=== PATIENT | female | born 1960 | race African-American/Black ===

== ENCOUNTER 2017-09-11 10:31 | Emergency (ER) | payer MEDICAID ==
[~2017-09-11] VITALS: Ht 162.6 cm; Wt 55.8 kg
[~2017-09-11 10:31] MED LIST: LISI-167 PO
[2017-09-11 11:05] VITALS: BP 180/105
== END 2017-09-11 11:24 | disposition home or self-care (01) ==
LOC: ED 11:10
DX: Z76.0 Encounter for issue of repeat prescription (principal); I10 Essential (primary) hypertension
CPT/HCPCS: 99283

== ENCOUNTER 2017-11-19 01:23 | Emergency (ER) | payer MEDICAID ==
[~2017-11-19] VITALS: Ht 162.6 cm; Wt 58.8 kg
[2017-11-19 01:33] VITALS: BP 150/87
== END 2017-11-19 02:59 | disposition home or self-care (01) ==
LOC: ED 02:40
DX: B96.89 Other specified bacterial agents as the cause of diseases classified elsewhere (principal); J20.8 Acute bronchitis due to other specified organisms; I10 Essential (primary) hypertension
CPT/HCPCS: 71046; 99284

== ENCOUNTER 2018-01-20 08:31 | Emergency (ER) | payer MEDICAID ==
[~2018-01-20] VITALS: Ht 162.6 cm; Wt 61.0 kg
[2018-01-20 08:36] VITALS: BP 160/88
== END 2018-01-20 09:27 | disposition home or self-care (01) ==
LOC: ED 09:15
DX: J00 Acute nasopharyngitis [common cold] (principal); Z76.0 Encounter for issue of repeat prescription; I10 Essential (primary) hypertension
CPT/HCPCS: 99283

== ENCOUNTER 2018-05-06 09:58 | Emergency (ER) | payer MEDICAID ==
[~2018-05-06] VITALS: Ht 162.6 cm; Wt 59.0 kg
[2018-05-06 10:00] VITALS: BP 142/80
== END 2018-05-06 10:54 | disposition home or self-care (01) ==
LOC: ED 10:48
DX: S39.012A Strain of muscle, fascia and tendon of lower back, initial encounter (principal); I10 Essential (primary) hypertension; F17.200 Nicotine dependence, unspecified, uncomplicated; W22.8XXA Striking against or struck by other objects, initial encounter; Y93.89 Activity, other specified; Y92.89 Other specified places as the place of occurrence of the external cause; Y99.8 Other external cause status; Z76.0 Encounter for issue of repeat prescription
CPT/HCPCS: 99283

== ENCOUNTER 2018-06-10 12:44 | Emergency (ER) | payer MEDICAID ==
[~2018-06-10] VITALS: Ht 162.6 cm; Wt 61.6 kg
[2018-06-10 12:53] VITALS: BP 169/95
[2018-06-10] MEDS ORDERED: DEXAMETHASONE 4 MG TABLET ONE (13:20)
[2018-06-10] MEDS ORDERED: DEXAMETHASONE 4 MG TABLET PO ONE (13:30)
== END 2018-06-10 13:36 | disposition home or self-care (01) ==
LOC: ED 13:23
DX: L24.5 Irritant contact dermatitis due to other chemical products (principal); I10 Essential (primary) hypertension; F17.200 Nicotine dependence, unspecified, uncomplicated
CPT/HCPCS: 99283; Q0177

== ENCOUNTER 2018-09-07 06:51 | Emergency (ER) | payer MEDICAID ==
[~2018-09-07] VITALS: Ht 162.6 cm; Wt 63.7 kg
[2018-09-07 08:01] VITALS: BP 158/86
== END 2018-09-07 08:45 | disposition home or self-care (01) ==
LOC: ED 08:30
DX: J18.1 Lobar pneumonia, unspecified organism (principal); H92.01 Otalgia, right ear; I10 Essential (primary) hypertension; Z87.2 Personal history of diseases of the skin and subcutaneous tissue; Z87.09 Personal history of other diseases of the respiratory system; Z87.42 Personal history of other diseases of the female genital tract
CPT/HCPCS: 71046; 99284

== ENCOUNTER 2019-01-23 13:45 | Emergency (ER) | payer MEDICAID ==
[~2019-01-23] VITALS: Ht 162.6 cm; Wt 64.4 kg
[2019-01-23 13:47] VITALS: BP 158/84
== END 2019-01-23 14:37 | disposition home or self-care (01) ==
LOC: ED 14:26
DX: I10 Essential (primary) hypertension (principal); F17.200 Nicotine dependence, unspecified, uncomplicated
CPT/HCPCS: 99283

== ENCOUNTER 2019-02-16 22:17 | Emergency (ER) | payer MEDICAID ==
[~2019-02-16] VITALS: Ht 162.6 cm; Wt 64.4 kg
[2019-02-16 22:21] VITALS: BP 172/90
--- NOTE | 2019-02-16 23:34 | NUR ---
pt given dc instructions and script, educated regarding lisinopril and lidocaine patch rx. per edpa, no repeat vs needed prior to dc. pt a&o, resps even and unlabored. nadn. pt amb to dc desk with steady gait, nadn.
== END 2019-02-16 23:33 | disposition home or self-care (01) ==
LOC: ED 23:15
DX: M75.31 Calcific tendinitis of right shoulder (principal); M75.101 Unspecified rotator cuff tear or rupture of right shoulder, not specified as traumatic; I10 Essential (primary) hypertension; F17.210 Nicotine dependence, cigarettes, uncomplicated
CPT/HCPCS: 99283

== ENCOUNTER 2019-03-21 08:29 | Emergency (ER) | payer MEDICAID ==
[~2019-03-21] VITALS: Ht 162.6 cm; Wt 62.8 kg
[2019-03-21 08:35] VITALS: BP 151/95
--- NOTE | 2019-03-21 08:57 | NUR ---
TO ROOM FROM LOBBY
[2019-03-21] MEDS ORDERED: BUPIVACAINE 0.25% INFIL ONE (09:30)
[2019-03-21] MEDS ORDERED: HYDROcodone/APAP 5/325 TABLET PO ONE (09:30)
[2019-03-21] MEDS ORDERED: TRIAMCINOLONE ACETONIDE 40 MG/ML, 1ML IM ONE (09:30)
[2019-03-21] MEDS ORDERED: BUPIVACAINE 0.25% ONE (09:46)
[2019-03-21] MEDS ORDERED: HYDROcodone/APAP 5/325 TABLET ONE (09:46)
--- NOTE | 2019-03-21 09:52 | NUR ---
PT MEDICATED PER DEC. PT STATES NO ISSUES WITH MEDICATION. PT GIVEN D/C PAPERWORK SHE NEEDS TO LEAVE. PT AWARE TO FOLLOW UP WITH PCP.
== END 2019-03-21 09:54 | disposition home or self-care (01) ==
LOC: ED 09:48
DX: M25.511 Pain in right shoulder (principal)
CPT/HCPCS: 99283

== ENCOUNTER 2019-11-18 17:28 | Emergency (ER) | payer SELFPAY ==
[~2019-11-18] VITALS: Ht 162.6 cm; Wt 66.0 kg
[2019-11-18 17:42] VITALS: BP 167/91
--- NOTE | 2019-11-18 17:51 | NUR ---
PT HERE WITH C/O GENREALIZED SORENESS, STATES SHE IS ALSO HERE FOR A REFILL OF LISINOPRIL.
--- NOTE | 2019-11-18 18:22 | NUR ---
Patient/Caregiver given discharge instructions and they have confirmed that they understand the instructions. Patient ambulatory with steady gait.
== END 2019-11-18 18:23 ==
LOC: ED 18:17
DX: I10 Essential (primary) hypertension (principal); Z76.0 Encounter for issue of repeat prescription; F17.200 Nicotine dependence, unspecified, uncomplicated
CPT/HCPCS: 99283

== ENCOUNTER 2019-12-04 09:58 | Emergency (ER) | payer OTHER ==
[~2019-12-04] VITALS: Ht 162.6 cm; Wt 66.8 kg
[2019-12-04 10:03] VITALS: BP 156/90
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
--- NOTE | 2019-12-04 11:07 | NUR ---
Patient/Caregiver given discharge instructions and they have confirmed that they understand the instructions. Patient ambulatory with steady gait.
== END 2019-12-04 12:06 | disposition home or self-care (01) ==
LOC: ED 11:00
DX: S00.03XA Contusion of scalp, initial encounter (principal); R20.2 Paresthesia of skin; R11.2 Nausea with vomiting, unspecified; R51 Headache; I10 Essential (primary) hypertension; F17.200 Nicotine dependence, unspecified, uncomplicated; W22.8XXA Striking against or struck by other objects, initial encounter; Y93.89 Activity, other specified; Y92.69 Other specified industrial and construction area as the place of occurrence of the external cause; Y99.0 Civilian activity done for income or pay
CPT/HCPCS: 70450; 99284

== ENCOUNTER 2019-12-22 02:47 | Emergency (ER) | payer MEDICAID, OTHER ==
[~2019-12-22] VITALS: Ht 162.6 cm; Wt 67.8 kg
[2019-12-22 02:51] VITALS: BP 145/84
--- NOTE | 2019-12-22 02:56 | NUR ---
PT AMBULATES FROM LOBBY TO ROOM WITH STEADY GAIT.
--- NOTE | 2019-12-22 03:25 | NUR ---
PT D/C WITH D/C SUMMARY AND SCRIPTS. ALL QUESTIONS ANSWERED. PT DENIES ANY OTHER NEEDS PERTAINING TO THIS VISIT. PT AMBULATES TO REGISTRATION DESK WITH STEADY GAIT FOR D/C HOME.
== END 2019-12-22 03:28 | disposition home or self-care (01) ==
LOC: ED 03:25
DX: R05 Cough (principal); I10 Essential (primary) hypertension; F17.200 Nicotine dependence, unspecified, uncomplicated
CPT/HCPCS: 99283

== ENCOUNTER 2020-04-16 02:08 | Emergency (ER) | payer SELFPAY ==
[~2020-04-16] VITALS: Ht 162.6 cm; Wt 70.9 kg
[2020-04-16 02:11] VITALS: BP 146/89
[2020-04-16] MEDS ORDERED: ACETAMINOPHEN 500 MG TABLET PO ONE (02:30)
[2020-04-16] MEDS ORDERED: ACETAMINOPHEN 500 MG TABLET ONE (02:36)
[2020-04-16] MEDS ORDERED: KETOROLAC 30 MG/1 ML ONE (02:36)
[2020-04-16] MEDS: KETOROLAC 30 MG/1 ML IM ONE ×2 (03:05→03:07)
== END 2020-04-16 03:46 | disposition left against medical advice (07) ==
LOC: ED 03:30
DX: G89.11 Acute pain due to trauma (principal); R07.89 Other chest pain; I10 Essential (primary) hypertension; F17.210 Nicotine dependence, cigarettes, uncomplicated; Y04.8XXA Assault by other bodily force, initial encounter; Y93.89 Activity, other specified; Y92.89 Other specified places as the place of occurrence of the external cause; Y99.8 Other external cause status
CPT/HCPCS: 99283; 99406; J1885

== ENCOUNTER 2020-08-23 07:15 | Emergency (ER) | payer MEDICAID ==
[~2020-08-23] VITALS: Ht 162.6 cm; Wt 71.6 kg
[2020-08-23 07:20] VITALS: BP 146/87
--- NOTE | 2020-08-23 07:42 | NUR ---
PT LEFT AMA, VERBAL D/C INSTRUCTIONS GIVEN BY PA PRIOR TO LEAVING FACILITY
== END 2020-08-23 07:49 | disposition left against medical advice (07) ==
LOC: ED 07:47
DX: J02.9 Acute pharyngitis, unspecified (principal); H92.02 Otalgia, left ear; I10 Essential (primary) hypertension
CPT/HCPCS: 99282

== ENCOUNTER 2021-04-18 18:49 | Emergency (ER) | payer MEDICAID ==
[~2021-04-18] VITALS: Ht 162.6 cm; Wt 69.3 kg
[2021-04-18 19:04] VITALS: BP 128/76
--- NOTE | 2021-04-18 22:15 | NUR ---
CREATIVE RESOURCE MANAGER: NIL X 1 WHEN CALLED FOR PIT AT [phone]
--- NOTE | 2021-04-18 23:09 | NUR ---
PIPELINE TECHNICIAN: NOT IN LOBBY
--- NOTE | 2021-04-18 23:35 | NUR ---
YARN DUMPER: PT NOT IN LOBBY
== END 2021-04-18 23:37 | disposition left against medical advice (07) ==
LOC: ED 19:00
DX: Z76.0 Encounter for issue of repeat prescription (principal); Z53.21 Procedure and treatment not carried out due to patient leaving prior to being seen by health care provider